=== PATIENT | male | born 1990 | race Caucasian/White ===

== ENCOUNTER 2017-01-24 14:34 | Emergency (ER) | payer MEDICAID ==
[2017-01-24 14:47] VITALS: RESP 20
--- NOTE | 2017-01-24 15:00 | C.PDOC ---
History Of Present Illness 26 yo male c/o right toe pain. Pt notes he has always had a thick nail, yesterday he was playing basketball, hit the toe against another player and the toe nail lifted. No other trauma. No change in sensation. Time Seen by Provider: 01/24/17 14:52 Chief Complaint (Nursing): Lower Extremity Problem/Injury History Per: Patient History/Exam Limitations: no limitations Onset/Duration Of Symptoms: Days (yesterday) Current Symptoms Are (Timing): Still Present Past Medical History Vital Signs: Last Vital Signs Temp 98.1 F 01/24/17 16:02 Pulse 74 01/24/17 16:02 Resp 20 01/24/17 16:02 BP 93/60 L 01/24/17 16:02 Pulse Ox 99 01/24/17 16:02 Family History: States: Unknown Family Hx - Social History Hx Alcohol Use: No Hx Substance Use: Yes - Immunization History Hx Tetanus Toxoid Vaccination: No Hx Influenza Vaccination: No Hx Pneumococcal Vaccination: No Review Of Systems Constitutional: Negative for: Fever Musculoskeletal: Positive for: Foot Pain Neurological: Negative for: Weakness, Numbness Physical Exam - Physical Exam Appears: Well, Non-toxic, No Acute Distress Skin: Warm, Dry Eye(s): bilateral: Normal Inspection, EOMI Nose: Normal Oral Mucosa: Moist Neck: Normal, Supple Chest: Symmetrical Respiratory: No Accessory Muscle Use Extremity: Normal ROM, Tenderness, Capillary Refill (< 2 sec), Other ((+) right great toe with the distal half of nail of the nail bed, no evidence of nail bed distrubtion. No active bleeding. Nail is thick. No erythema or discharge.) ED Course And Treatment O2 Sat by Pulse Oximetry: 97 Progress Note: Offered XR, pt refused. Offered pain medication, pt refused. Discussed wound care and signs of concern for infection. Discussed possible complete nail avulision, proximal nail and cuticl enot idsturbed. Area was cleansed and dressed by RN. Instructed wound check in 3 days with podiatry. Case discussed with corrie Lucas plan and treatment. Disposition - Disposition Referrals: Haresh Lema DPM [[facility]] - Disposition: HOME/ ROUTINE Disposition Time: 15:23 Condition: STABLE Additional Instructions: Follow up with podiatry in 1-2 days. Return to ER if symptoms persist or worsen. Watch for signs of infection including redness, swelling and discharge. Prescriptions: Bacitracin OINT 1 applic TP BID #1 tube Instructions: Nail Avulsion (ED) Forms: [facility] (Tajik) - Clinical Impression Clinical Impression: Nail avulsion, toe - PA / ESCROW CLOSER / Resident Statement MD/DO has reviewed & agrees with the documentation as recorded. - Scribe Statement The provider has reviewed the documentation as recorded by the Scribguy Garza All medical record entries made by the Taniaibguy were at my direction and personally dictated by me. I have reviewed the chart and agree that the record accurately reflects my personal performance of the history, physical exam, medical decision making, and the department course for this patient. I have also personally directed, reviewed, and agree with the discharge instructions and disposition.
[2017-01-24] MEDS ORDERED: Bacitracin 500 Units/gm Oint Foilpak UD TOP ONE (15:19)
[2017-01-24] MEDS ORDERED: Bacitracin 500 Units/gm Oint Foilpak UD ONE (15:22)
[2017-01-24 16:03] VITALS: BP 93/60; PULSE 74; TEMP 98.1
[2017-01-24 16:35] VITALS: O2SAT 97
== END 2017-01-24 16:01 | disposition home or self-care (01) ==
LOC: C.ER 14:34
DX: S91.201A Unspecified open wound of right great toe with damage to nail, initial encounter (principal); W50.0XXA Accidental hit or strike by another person, initial encounter; Y93.67 Activity, basketball

== ENCOUNTER 2018-05-03 16:00 | Emergency (ER) | payer SELFPAY ==
[2018-05-03 16:53] VITALS: BMI 23.0
[2018-05-03 16:56] VITALS: BP 115/74; PULSE 76; RESP 18; TEMP 98.9; O2SAT 99
[2018-05-03 17:51] LABS: BARBITURATES, UR NEGATIVE (NEGATIVE); BENZODIAZEPINES, UR NEGATIVE (NEGATIVE); OPIATES, UR NEGATIVE (NEGATIVE); PHENCYCLIDINE, UR NEGATIVE (NEGATIVE)
--- NOTE | 2018-05-03 18:18 | C.PDOC ---
History Of Present Illness 27 year old male presents to the ED requesting a drug screen. Patient states his detox program believes he is continuing to use cocaine. Patient denies cocaine use, but admits to cannabis use. He denies any other substance abuse. Time Seen by Provider: 05/03/18 17:14 Chief Complaint (Nursing): Medical Clearance History Per: Patient History/Exam Limitations: no limitations Onset/Duration Of Symptoms: Hrs Current Symptoms Are (Timing): Still Present Additional History Per: Patient Past Medical History Reviewed: Historical Data, Nursing Documentation, Vital Signs Vital Signs: Last Vital Signs Temp 98.9 F 05/03/18 16:53 Pulse 76 05/03/18 16:53 Resp 18 05/03/18 16:53 BP 115/74 05/03/18 16:53 Pulse Ox 99 05/03/18 16:53 - Medical History PMH: Denies: Diabetes, Hepatitis, HIV, HTN, Chronic Kidney Disease, Seizures, Sexually Transmitted Disease Surgical History: No Surg Hx Family History: States: Unknown Family Hx - Social History Hx Alcohol Use: Yes Hx Substance Use: No - Immunization History Hx Tetanus Toxoid Vaccination: No Hx Influenza Vaccination: No Hx Pneumococcal Vaccination: No Review Of Systems Psych: Positive for: Other (requesting drug screen ) Physical Exam - Physical Exam Appears: Non-toxic, No Acute Distress Skin: Normal Color, Warm, Dry Head: Atraumatic, Normacephalic Eye(s): bilateral: Normal Inspection Oral Mucosa: Moist Neck: Supple Extremity: Normal ROM Neurological/Psych: Oriented x3, Normal Speech, Normal Cognition ED Course And Treatment - Laboratory Results Lab Interpretation: Abnormal (UDS + THC) O2 Sat by Pulse Oximetry: 99 (on RA) Pulse Ox Interpretation: Normal Progress Note: Drug screen ordered and reviewed. Medical Decision Making Medical Decision Making: behavioral issues persistent cannabis abuse Disposition Doctor Will See Patient In The: Office Counseled Patient/Family Regarding: Studies Performed, Diagnosis - Disposition Referrals: [facility] [Outside] [place] [facility] [Outside] [facility] [Outside] [facility] [Outside] Disposition: HOME/ ROUTINE Disposition Time: 18:18 Condition: GOOD Additional Instructions: toxicology Urine + for Cannabis/THC Seek outpatient assistance for your substance abuse issues Instructions: Marijuana Use and Addiction (DC) Forms: [facility] (Romanian) - Clinical Impression Clinical Impression: Cannabis abuse - Scribe Statement The provider has reviewed the documentation as recorded by the Scribe (Leighann Garza) Provider Attestation: All medical record entries made by the Scribe were at my direction and pe rsonally dictated by me. I have reviewed the chart and agree that the record accurately reflects my personal performance of the history, physical exam, medical decision making, and the department course for this patient. I have also personally directed, reviewed, and agree with the discharge instructions and disposition.
== END 2018-05-03 18:22 | disposition home or self-care (01) ==
LOC: C.ER 16:00
DX: F12.10 Cannabis abuse, uncomplicated (principal)
CPT/HCPCS: 99282; G0480

== ENCOUNTER 2018-10-11 08:46 | Emergency (ER) | payer MEDICAID ==
[2018-10-11 09:09] VITALS: BMI 23.7
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
[2018-10-11 10:13] LABS: BASO # 0.1 K/uL (0.0-0.2); EOS % 0.1 % (0.0-4.0); HEMOGLOBIN 15.5 g/dL (12.0-18.0); LYMPH # 2.8 K/uL (1.0-4.3); LYMPH % 25.6 % (20.0-40.0); MEAN CELL VOLUME 90.3 fL (80.0-94.0); MEAN CORPUSCULAR HEMOGLOBIN 30.9 pg (27.0-31.0); MEAN CORPUSCULAR HGB CONC 34.2 g/dL (33.0-37.0); MEAN PLATELET VOLUME 8.6 fL (7.2-11.7); MONO # 0.8 K/uL (0.0-0.8); MONO % 7.5 % (0.0-10.0); NEUT # 7.3 K/uL (1.8-7.0); NEUT % 65.8 % (50.0-75.0); NRBC % 0.1 % (0.0-2.0); RBC 5.04 Mil/uL (4.40-5.90); RED CELL DISTRIBUTION WIDTH 13.7 % (11.5-14.5)
[2018-10-11 10:32] LABS: ALB/GLOB RATIO 1.4 (1.0-2.1); ALBUMIN 4.9 g/dL (3.5-5.0); ALT/SGPT 24 U/L (21-72); AST/SGOT 49 U/L (17-59); BLOOD UREA NITROGEN 18 mg/dL (9-20); CALCIUM 9.9 mg/dl (8.6-10.4); GFR NON-AFRICAN AMERICAN > 60
[2018-10-11 10:49] LABS: BARBITURATES, UR NEGATIVE (NEGATIVE); BENZODIAZEPINES, UR NEGATIVE (NEGATIVE); OPIATES, UR NEGATIVE (NEGATIVE); PHENCYCLIDINE, UR NEGATIVE (NEGATIVE)
[2018-10-11 10:56] LABS: SQUAMOUS EPITHIAL < 1 /hpf (0-5); URINE BILIRUBIN NEGATIVE (NEGATIVE); URINE BLOOD NEGATIVE (NEGATIVE); URINE CLARITY Clear (Clear); URINE COLOR Yellow (YELLOW); URINE GLUCOSE (UA) NORMAL (Normal); URINE LEUKOCYTE ESTERASE NEG Leu/uL (Negative); URINE PROTEIN 1+ mg/dL (NEGATIVE)
[2018-10-11 11:19] VITALS: BP 133/78; PULSE 85; RESP 17; TEMP 100.3
[2018-10-11 11:53] VITALS: O2SAT 99
--- NOTE | 2018-10-13 00:05 | CARD ---
APPROVED REPORT Date of service: 10/11/2018 EKG Measurement Heart [id number] <Conclusion> Normal sinus rhythm Possible Left atrial enlargement Borderline ECG
== END 2018-10-11 12:10 | disposition home or self-care (01) ==
LOC: C.ER 08:46
DX: F12.90 Cannabis use, unspecified, uncomplicated (principal); Z59.0 Homelessness
CPT/HCPCS: 80053; 81001; 83735; 84100; 85025; 93005; 99284; G0480

== ENCOUNTER 2018-10-11 22:43 | Inpatient (IN) | payer MEDICAID, OTHER ==
[2018-10-11 22:44] VITALS: BMI 23.7
--- NOTE | 2018-10-11 23:19 | C.PDOC ---
History Of Present Illness 27 year old male presents to the ED for evaluation of paranoia and auditory hallucinations. Patient noted to have an abrasion in his forehead. Patient denies SI/HI, LOC, visual changes, nausea, vomit, dizziness. Chief Complaint (Nursing): Psychiatric Evaluation History Per: Patient History/Exam Limitations: no limitations Onset/Duration Of Symptoms: Hrs Current Symptoms Are (Timing): Still Present Suicide/Self Injury Attempted (Context): None Associated Symptoms: Paranoia. denies: Depression, Suicidal Thoughts, Suicidal Plan Recent travel outside of the [place]: No Additional History Per: Patient, EMS Past Medical History Reviewed: Historical Data, Nursing Documentation, Vital Signs Vital Signs: Last Vital Signs Temp 97.4 F L 10/11/18 22:56 Pulse 90 10/11/18 22:56 Resp 16 10/11/18 22:56 BP 126/74 10/11/18 22:56 Pulse Ox 99 10/11/18 22:56 - Medical History PMH: No Chronic Diseases Denies: Diabetes, Hepatitis, HIV, HTN, Chronic Kidney Disease, Seizures, Sexually Transmitted Disease Surgical History: No Surg Hx Family History: States: Unknown Family Hx - Social History Hx Alcohol Use: Yes (''Occassional") Hx Substance Use: Yes - Immunization History Hx Tetanus Toxoid Vaccination: No Hx Influenza Vaccination: No Hx Pneumococcal Vaccination: No Review Of Systems Constitutional: Negative for: Fever, Chills Eyes: Negative for: Vision Change Cardiovascular: Negative for: Chest Pain Respiratory: Negative for: Shortness of Breath Gastrointestinal: Negative for: Nausea, Vomiting, Abdominal Pain Skin: Negative for: Rash Neurological: Negative for: Weakness, Numbness, Headache, Dizziness Psych: Positive for: Psychosis. Negative for: Depression, Suicidal ideation Physical Exam - Physical Exam Appears: Non-toxic, No Acute Distress Skin: Normal Color, Warm, Dry Head: Normacephalic, Abrasion (forehead) Eye(s): bilateral: Normal Inspection, PERRL, EOMI Neck: Normal ROM, No Midline Cervical Tenderness, Supple Chest: Symmetrical Cardiovascular: Rhythm Regular Respiratory: Normal Breath Sounds, No Rales, No Rhonchi, No Wheezing Gastrointestinal/Abdominal: Soft, No Tenderness Extremity: Normal ROM, No Tenderness, No Swelling Neurological/Psych: Oriented x3, Normal Speech, Normal Cognition, Other (non focal) Gait: Steady ED Course And Treatment - Laboratory Results Result Diagrams: 10/11/18 23:59 10/11/18 23:59 O2 Sat by Pulse Oximetry: 99 (ON RA) Pulse Ox Interpretation: Normal Medical Decision Making Medical Decision Making: Plan: * Labs * UA Disposition Discussed With : Kelsea Mcclure Doctor Will See Patient In The: Hospital Counseled Patient/Family Regarding: Diagnosis - Disposition Disposition: HOSPITALIZED Disposition Time: 02:41 Condition: STABLE Forms: [facility] [employer] [facility] (Greenlandic) - Clinical Impression Clinical Impression: Schizophrenia, unspecified, Cannabis abuse - Scribe Statement The provider has reviewed the documentation as recorded by the Scribe Chalo Beaver All medical record entries made by the Scribe were at my direction and personally dictated by me. I have reviewed the chart and agree that the record accurately reflects my personal performance of the history, physical exam, medi sarah beth decision making, and the department course for this patient. I have also personally directed, reviewed, and agree with the discharge instructions and disposition.
[2018-10-12 00:02] LABS: BASO # 0.1 K/uL (0.0-0.2); BASO % 0.6 % (0.0-2.0); HEMOGLOBIN 14.5 g/dL (12.0-18.0); LYMPH % 15.5 % (20.0-40.0); MEAN CELL VOLUME 89.9 fL (80.0-94.0); MEAN CORPUSCULAR HEMOGLOBIN 30.8 pg (27.0-31.0); MEAN CORPUSCULAR HGB CONC 34.3 g/dL (33.0-37.0); MEAN PLATELET VOLUME 8.5 fL (7.2-11.7); MONO # 0.8 K/uL (0.0-0.8); NEUT # 10.1 K/uL (1.8-7.0); NEUT % 77.9 % (50.0-75.0); NRBC % 0.1 % (0.0-2.0); RBC 4.72 Mil/uL (4.40-5.90); RED CELL DISTRIBUTION WIDTH 13.4 % (11.5-14.5)
[2018-10-12 00:33] LABS: SQUAMOUS EPITHIAL < 1 /hpf (0-5); URINE BACTERIA RARE (<OCC); URINE BILIRUBIN NEGATIVE (NEGATIVE); URINE BLOOD NEGATIVE (NEGATIVE); URINE CLARITY Hazy (Clear); URINE COLOR Yellow (YELLOW); URINE GLUCOSE (UA) NORMAL (Normal); URINE LEUKOCYTE ESTERASE NEG Leu/uL (Negative); URINE PROTEIN NEGATIVE (NEGATIVE)
[2018-10-12 00:51] LABS: ALB/GLOB RATIO 1.6 (1.0-2.1); ALBUMIN 4.8 g/dL (3.5-5.0); ALT/SGPT 26 U/L (21-72); AST/SGOT 68 U/L (17-59); BLOOD UREA NITROGEN 19 mg/dL (9-20); CALCIUM 9.1 mg/dl (8.6-10.4); GFR NON-AFRICAN AMERICAN 56
[2018-10-12] MEDS ORDERED: Potassium Chloride 20 mEq/15 ml LIQ UD PO STA (00:56)
[2018-10-12 01:09] LABS: BARBITURATES, UR NEGATIVE (NEGATIVE); BENZODIAZEPINES, UR NEGATIVE (NEGATIVE); OPIATES, UR NEGATIVE (NEGATIVE); PHENCYCLIDINE, UR NEGATIVE (NEGATIVE)
[2018-10-12] MEDS ORDERED: Potassium Chloride 20 mEq ER Tab PO ONE (01:22)
[2018-10-12 03:02] VITALS: O2SAT 97
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
[2018-10-12] MEDS: Multiple Vitamins Tab PO SCH (13:40)
--- NOTE | 2018-10-12 17:07 | PCM.PSYCH ---
Initial Psychiatric Evaluation - Initial Psychiatric Evaluation Type of Admission: Voluntary Legal Status: Capacity Chief Complaint (in patient's own words): I was hearing voices follow-up 3 years, telling me to do different things. History of Present Illness and Precipitating Events: Patient is a 27 years old, single, unemployed, homeless, male who was admitted due to auditory hallucinations for last 3 years, telling him to do d ifferent things. Patient reported that recently the voices were telling him to fight with other people and he responded to those voices 2 days ago. Patient reported never been in the treatment before this. According to patient voices were telling him to do random things. Also reported feeling depressed at times due to his situation. Initially for last few days, feeling tired. Denied any appetite or weight change. Denied any current or past suicidal or homicidal ideations. Denied any manic or anxiety symptoms. Patient was arrested and was in [facility] about 1 year, 3 years ago for selling heroin. Patient reported he was not using heroin he was just sitting. He is not on probation. Cannabis: Started using cannabis at 17 years of age, every day, 1 ounce daily. Last used 2 days ago. Alcohol: He started drinking alcohol at 17 years of age, 3-4 days/week, 1 pint each time. Last drink 2 days ago. Patient also has history of ecstasy use in the past when he was 18 years of age. He also smokes 1 pack of cigarettes daily and is refusing for nicotine patch. Patient was born in [place] and has high school graduation. He is not working. Supported by family. He is homeless for last 2 years. Never and has no children. His height is 5 feet 11 inches and weight is 165 pounds. Current Medications: Active Medications Generic Name Dose Route Start Last Admin Trade Name Freq PRN Reason Stop Dose Admin Chlordiazepoxide 25 mg 10/12/18 13:10 Librium PO Q4H PRN Alcohol Withdrawal Chlordiazepoxide 25 mg 10/12/18 18:00 Librium PO 10/16/18 17:59 Q6 GRUPO Taper Clonidine HCl 0.1 mg 10/12/18 13:10 Catapres PO Q4H PRN Symptoms of alcohol withdrawl Folic Acid 1 mg 10/12/18 13:15 10/12/18 13:40 Folic Acid PO 1 mg DAILY GRUPO Administration Gabapentin 300 mg 10/12/18 18:00 Neurontin PO BID GRUPO Haloperidol 5 mg 10/12/18 18:00 Haldol PO BID GRUPO Hydroxyzine HCl 25 mg 10/12/18 13:13 Atarax PO Q6 PRN Anxiety Ibuprofen 400 mg 10/12/18 13:13 Motrin Tab PO Q6 PRN Pain, moderate (4-7) Multivitamins 1 tab 10/12/18 13:15 10/12/18 13:40 Hexavitamin PO 1 tab DAILY GRUPO Administration Pneumococcal Polyvalent Vaccine 0.5 ml 10/15/18 10:00 Pneumovax 23 Vaccine IM 10/15/18 10:01 .ONCE ONE Thiamine HCl 100 mg 10/12/18 13:15 10/12/18 13:40 Vitamin B1 Tab PO 100 mg DAILY GRUPO Administration Trazodone HCl 50 mg 10/12/18 13:10 Desyrel PO HS PRN Insomnia Past Psychiatric History - Past Psychiatric History Previous Treatment History: None History of Abuse: None reported History of ETOH/Drug Use: See HPI History of Family Illness: Reported mother is alcoholic Pertinent Medical Hx (Current Medical&Sleep Prob, Allergies): Allergies Allergy/AdvReac Type Severity Reaction Status Date / Time shellfish derived Allergy RASH Verified 10/11/18 23:01 No Known Home Med 05/03/18 Review of Systems - Psychiatric Psychiatric: As Per HPI, Depression, Hallucinations Mental Status Examination - Personal Presentation Personal Presentation: Looks stated age - Affect Affect: Depressed - Motor Activity Motor Activity: Calm - Reliability in Providing Information Reliability in Providing Information: Fair - Speech Speech: Organized - Mood Mood: Depressed - Formal Thought Process Formal Thought Process: No Impairment - Hallucinations/Delusions Hallucinations: Other (None reported at the time of evaluation) Delusions: Other - Obsessions/Compulsions Obsessions: None Compulsions: None - Cognitive Functions Orientation: Person, Place, Situation, Time Sensorium: Alert Attention/Concentration: Attentive Abstract Thinking: [place] Estimate of Intelligence: Average Judgement: Intact, as evidence by: Insight regarding need for hospitalization Memory: Recent intact, as evidence by: Ability to recall events of the day, Remote intact, as evidenced by: Ability to recall historical events - Risk Risk: Withdrawal, Diminished functioning - Strength & Assets Inventory Strength & Assets Inventory: Family support, Cooperative - Limitations Limitations: Other (Homeless) DSM 5 DX - DSM 5 DSM 5 Diagnosis: Schizophrenia. Cannabis withdrawal Cannabis use disorder severe Alcohol withdrawal Alcohol use disorder severe - Recommended/Plan of Treatment Treatment Recommendations and Plan of Treatment: Patient education. Supportive therapy. CBT for relapse prevention. [place] for abstinence. We will start Librium taper for alcohol withdrawal symptoms. Other PRN medications. Haldol for hallucinations. Projected ELOS: 8-10 days - Smoking Cessation Smoking Cessation Initiated: No Reason for not providing: Patient refused
[2018-10-13 06:53] VITALS: RESP 18
[2018-10-13] MEDS: Multiple Vitamins Tab PO SCH (09:36)
--- NOTE | 2018-10-13 22:29 | PCM.PYCHPN ---
Psychiatric Progress Note - Psychiatric Progress Note Patient seen today, length of contact: 15 minutes Patient Chief Complaint: I am feeling little better. Problems Identified/Issues Discussed: Patient seen, chart reviewed, case discussed with the staff. Patient is related to illness and treatment were discussed with the patient and staff. Patient was evaluated with the team. Reported compliant with treatment with no adverse effects. Tolerating treatment very well. Reported feeling little better. Mood reported as okay. Affect appropriate. Aftercare discussed with the patient. Patient needs more time for stabilization. Patient denied any suicidal or homicidal ideation at the time of evaluation. Medical Problems: None reported Diagnostic Results: Reviewed DSM 5 Symptoms Update: Some improvement with treatment. Medication Change: No Medical Record Reviewed: Yes Mental Status Examination - Cognitive Function Orientation: Person, Place, Situation, Time Memory: Intact Attention: WNL Concentration: WNL Association: WN Fund of Knowledge: [facility] Decription of patient's judgement and insights: Fair - Mood Mood: Depressed - Affect Affect: Depressed - Speech Speech: Appropriate - Formal Thought Process Formal Thought Process: No Impairment Psychotic Thoughts and Behaviors: None - Suicidal Ideation Suicidal Ideation: No - Homicidal Ideation Homicidal Ideation: No Goal/Treatment Plan - Goal/Treatment Plan Need for Continued Stay: Remain at risks for inpatient hospitalization, Discharge may exacerbated symptoms, Severe functional impairment Progress Toward Problem(s) and Goals/Treatment Plan: Patient education. Supportive therapy. CBT for relapse prevention. [place] for abstinence. Continue treatment as before Estimated Date of D/C: 10/17/18 - Smoking Cessation Smoking Cessation Initiated: No
[2018-10-14] MEDS: Multiple Vitamins Tab PO SCH (09:45)
--- NOTE | 2018-10-14 23:41 | PCM.PYCHPN ---
Psychiatric Progress Note - Psychiatric Progress Note Patient seen today, length of contact: 15 min Patient Chief Complaint: "I'm fine" Problems Identified/Issues Discussed: The pt is seen, chart reviewed, case discussed with staff. Support and psychoeducation given Pt is improving slowly and needs more time, still has ongoing symptoms but better than when he came yesterday Denies SI, HI No SEs from medications, risks discussed. Medication Change: Yes Medical Record Reviewed: Yes Mental Status Examination - Cognitive Function Orientation: Person, Place, Situation, Time Memory: Intact Attention: WNL Concentration: Poor Association: WNL Fund of Knowledge: WNL - Mood Mood: Depressed - Affect Affect: Constricted - Formal Thought Process Formal Thought Process: Paranoia - Suicidal Ideation Suicidal Ideation: No - Homicidal Ideation Homicidal Ideation: No Goal/Treatment Plan - Goal/Treatment Plan Need for Continued Stay: Discharge may exacerbated symptoms, Severe functional impairment Progress Toward Problem(s) and Goals/Treatment Plan: Continue medications Support and psychoeducation daily Attend groups and activities daily After care planning by IVETTE
[2018-10-15 06:33] VITALS: BP 106/72; PULSE 78; TEMP 97.7
[2018-10-15] MEDS: Multiple Vitamins Tab PO SCH (09:17)
[2018-10-15] MEDS ORDERED: Pneumococcal 23-Valent Vaccine IM ONE (10:00)
--- NOTE | 2018-10-15 12:17 | PCM.PYCHDC ---
Mental Status Examination - Mental Status Examination Orientation: Person, Place, Situation, Time Memory: Intact Mood: Other (irate) Affect: Other (intense at times) Speech: Appropriate Attention: WNL Concentration: Poor Association: WNL Fund of Knowledge: WNL Formal Thought Process: Paranoia Suicidal Ideation: No Current Homicidal Ideation?: No Discharge Summary - Discharge Note Reason for Hospitalization: Feeling depressed, losing control of his anger. Consultations:: List each consultation separately and include: 1. Reason for request. 2. Findings. 3. Follow-up Summary of Hospital Course include:: 1. Description of specific treatment plan utilized for patients during their course of treatmen. 2. Summarize the time- course for resolution of acute symptoms and/or regressed behaviors. 3. Describe issues identified and worked on during hospitalization. 4. Describe medication utilized. 5. Describe medical problems identified and treated. 6. Reassessment of suicide risk Summary of Hospital Course: The pt was admitted and started on treatment with psychotherapy, support, psy choeducation and medications. The pt attended few groups and activities, as well as milieu therapy. All the risks and benefits of medications are discussed and the patient understood and agreed. The pt improved with the treatments provided. However he needed 2-3 more days as he was still periodically agitated and paranoid, but he asked for d/c AMA today. Risks discussed - he understood and still wanted to leave He refused prescription too He was not screenable due to taking meds and not being homicidal, suicidal, unable to take care of self. He wants to go to [facility] recommended for crisis intervention. - Final Diagnosis (DSM 5) Condition upon Discharge: FAIR DSM 5: Schizophrenia. Cannabis use disorder severe Alcohol withdrawal Alcohol use disorder severe Disposition: AGAINST MEDICAL ADVICE Follow-up Treatment Plan: Use relapse prevention skills Return to ER or call 911 if suicidal, homicidal or symptoms relapse. Stay away from stress, alcohol and drugs. See primary doctor regularly and get labs.
== END 2018-10-15 14:02 | disposition left against medical advice (07) | DRG 750 ==
LOC: C.ER 22:43 → C.5E 10-12 02:43
PROVIDERS: ADMIT Psychiatry & Neurology Psychiatry; ATTEND Psychiatry & Neurology Psychiatry
PROC: GZ3ZZZZ Medication Management (ICD-10-PCS; principal; 2018-10-12)
PROC: HZ89ZZZ Medication Management for Substance Abuse Treatment, Other Replacement Medication (ICD-10-PCS; 2018-10-12)
PROC: GZHZZZZ Group Psychotherapy (ICD-10-PCS; 2018-10-12)
PROC: GZ56ZZZ Individual Psychotherapy, Supportive (ICD-10-PCS; 2018-10-12)
DX: F20.9 Schizophrenia, unspecified (principal); F10.239 Alcohol dependence with withdrawal, unspecified; F12.23 Cannabis dependence with withdrawal; F17.210 Nicotine dependence, cigarettes, uncomplicated; Z59.0 Homelessness